=== PATIENT | male | born 1990 | race Hispanic/Latino ===

== ENCOUNTER 2020-09-27 17:02 | Emergency (ER) | payer OTHER ==
[2020-09-27] MEDS ORDERED: FAMOTIDINE 20MG TAB 20 MG TAB ONE (17:40)
[2020-09-27] MEDS ORDERED: DEXAMETHASONE SOD PHOSPHATE 10MG/ML 1ML VIAL ONE (17:40)
[2020-09-27] MEDS ORDERED: DIPHENHYDRAMINE HCL 25 MG CAPSULE ONE ×2 (17:40→17:45)
== END 2020-09-27 18:07 | disposition home or self-care (01) ==
LOC: EDH 17:02
DX: L50.0 Allergic urticaria (principal)
CPT/HCPCS: 96372; 99283; J1100; Q0163 ×2

== ENCOUNTER → 2024-05-06 | Outpatient (CLI) | payer BC ==
--- NOTE | 2024-05-06 12:53 | HMCIMG ---
HAND 2+VWS RT LIMITED HISTORY: Injury COMPARISON: None TECHNIQUE: 2 images of right hand were obtained. FINDINGS: Interphalangeal joint space narrowing is seen. Radiocarpal joint space narrowing is seen. There is no acute displaced fracture or dislocation. IMPRESSION: 1. Findings as described above.
== END | disposition home or self-care (01) ==
LOC: RAH 10:00
PROVIDERS: ATTEND Internal Medicine
DX: S63.601A Unspecified sprain of right thumb, initial encounter (principal); X58.XXXA Exposure to other specified factors, initial encounter; Y93.89 Activity, other specified; Y92.89 Other specified places as the place of occurrence of the external cause; Y99.8 Other external cause status
CPT/HCPCS: 73120

== ENCOUNTER 2024-11-09 00:42 | Emergency (ER) | payer OTHER, BC ==
[~2024-11-09] VITALS: Ht 177.8 cm; Wt 91.6 kg
[2024-11-09] MEDS: ketOROlac 15MG/ML VIAL (15MG/ML) IM ONE (01:08)
--- NOTE | 2024-11-09 02:27 | NUR ---
ARM SLING IN PLACED
[2024-11-09] MEDS ORDERED: IBUP-2070 PO (02:30)
--- NOTE | 2024-11-09 02:30 | ERN ---
General Chief Complaint: Upper Extremity Pain/Injury Stated Complaint: ARM PAIN TO RIGHT Time Seen by MD: 00:47 Time Seen by Midlevel: 00:47 Source: patient History of Present Illness Initial Comments 34-year-old male presents to the emergency department due to right elbow pain. Patient reports he works at the [employer], and had a come fat patient that pinched the center of the elbow while hyperextending the arm. Patient reports he felt a numbness and tingling radiate down the right arm. Denies any further associated symptoms. Denies significant past medical history. Allergies: Coded Allergies: No Known Allergies (Unverified Allergy, Unknown, 11/09/24) Home Meds Active Scripts Ibuprofen (Ibuprofen) 600 Mg Tablet, 1 TAB PO TID for pain for 7 Days, #21 TAB 0 Refills with food Prov:J LUIS BENITO 11/09/24 Past Medical History Past Medical History: No Pertinent History Past Surgical History: None ROS Dictation Constitutional: Negative for fever,chills, and weight loss Eyes: Negative for injury, pain,redness, and discharge ENT: Negative for injury,pain or swelling Cardiovascular: Negative for chest pain, palpitations, and edema Respiratory: Negative for shortness of breath, cough, and wheezing, Abdomen/GI: Negative for abdominal pain, nausea, vomiting, diarrhea, and constipation Back: Negative for injury and pain : Negative for painful urination, bleeding or discharge MS/Extremity: Positive for right elbow pain Negative for injury and deformity Skin: Negative for rash, and discoloration Neuro: Negative for headache, weakness, numbness, tingling, and seizure Psych: Negative for suicide ideation, homicidal ideation, and hallucinations Physical Exam Physical Exam Dictation General: awake, alert, no acute distress Head/Face: Normocephalic, atraumatic Eyes: PERRL, EOMI, normal conjunctiva ENT: oral cavity clear, oral mucosa moist Neck: Supple, normal range of motion Cardiovascular: RRR, normal S1/S2 Respiratory: CTAB, no respiratory distress Skin: Warm, dry, normal turgor, no rash MS/Extremity: Pulses equal, no cyanosis, neurovascular intact, FROM. Right elbow limited active range of motion restricted for pain, normal passive ROM, no obvious deformities, neurovascularly intact, no ecchymosis or erythema noted. Neuro: COAx4, GCS 15, strength 5/5, CN 2-12 intact, normal cerebellar exam, normal gait, Psych: Normal behavior, mood, and affect normal MDM MDM: Differential diagnosis: Elbow hyperextension, fracture, sprain Rationale: 34-year-old male presents to the emergency department due to right elbow pain. Patient reports he works at the [employer], and had a come fat patient that pinched the center of the elbow while hyperextending the arm. Patient reports he felt a numbness and tingling radiate down the right arm. Denies any further associated symptoms. Denies significant past medical history. Per physical examination patient is in no acute distress, limited range of motion restricted by pain, neurovascularly intact, no obvious deformities. On re-examination after ketorolac has been administered patient had range of motion improved, normal sensory. X-rays obtained with no acute abnormalities noted. Raymundo contreras was educated on findings. Patient was placed on a sling. Advised to follow up with PCP. Return to the emergency department if any worsening symptoms. Patient verbalized understanding. Patient stable for discharge. There are no social concerns with this patient. I independently interpreted the test that were performed, results were reviewed by me and considered findings on radiology if ordered. Medical management and examination interpretation discussions were had by me with other qualified healthcare professionals as indicated for the patient's care. ED Course Orders Procedure Category Date Status Time Ketorolac PHA 11/09/24 Complete Tromethamine 15mg/Ml 01:00 Elbow Comp 3+Vws Rt RAD 11/09/24 Taken 00:47 Current Medications Medications (Trade) Dose Ordered Sig/Vani Route PRN Reason Start Time Stop Time Status Last Admin Dose Admin Ketorolac Tromethamine (toRADol) 15 mg ONCE ONCE IM 11/09/24 01:00 11/09/24 01:01 DC 11/09/24 01:08 Vital Signs Date Time Temp Pulse Resp B/P (MAP) Pulse Ox O2 Delivery O2 Flow Rate FiO2 11/09/24 02:37 98.4 88 18 125/65 99 Room Air* 0 21 11/09/24 02:00 98.2 78 18 132/65 99 Room Air* 0 21 11/09/24 00:45 98.1 82 18 157/111 95 Room Air DX & DISP Disposition: Discharge Departure Impression: Primary Impression: Hyperextension injury of right elbow Additional Impression: Elbow sprain Condition: Stable Scripts Ibuprofen (Ibuprofen) 600 Mg Tablet 1 TAB PO TID for pain for 7 Days, #21 TAB 0 Refills with food Prov: J LUIS BENITO 11/09/24 Additional Instructions: Discharge home. Rest. Follow up with primary care DrDebbie in 24 hours. Return to the ER for any acute changes or worsening symptoms. If any medications were prescribed take as directed. Okay to continue home medications unless otherwise discussed during your visit in the emergency room today. Patient was also advised to follow-up with primary care physician in 1 to 2 days for continued monitoring. I performed the substantive portion of the visit. I have reviewed and personally made and approve the management plan that is documented in the notes by myself or the KEE. I acknowledge full responsibility for the patient's management plan. J LUIS BENITO November 09, 2024 02:30
[2024-11-09 02:37] VITALS: BP 125/65; PULSE 88; RESP 18; TEMP 98.5; O2SAT 99
--- NOTE | 2024-11-09 09:35 | HMCIMG ---
Exam Type: ELBOW COMP 3+VWS RT Clinical Information: pain Comparison: None Findings: The bone examination is unremarkable. No fractures or dislocations are seen. No radiopaque foreign bodies are noted. Soft tissues are preserved. IMPRESSION: Normal examination.
== END 2024-11-09 02:42 | disposition home or self-care (01) ==
LOC: EDH 00:42
DX: S59.901A Unspecified injury of right elbow, initial encounter (principal); Z79.1 Long term (current) use of non-steroidal anti-inflammatories (NSAID); W18.39XA Other fall on same level, initial encounter; Y93.89 Activity, other specified; Y92.89 Other specified places as the place of occurrence of the external cause; Y99.8 Other external cause status
CPT/HCPCS: 99283; 73080; 96372; J1885